=== PATIENT | male | born 1985 | race Caucasian/White ===

== ENCOUNTER 2019-04-08 02:42 | Emergency (ER) | payer BC ==
[~2019-04-08] VITALS: Ht 165.1 cm; Wt 81.0 kg
[2019-04-08 06:55] VITALS: BP 150/110
== END 2019-04-08 06:55 | disposition home or self-care (01) ==
LOC: ED 02:42
DX: S43.004A Unspecified dislocation of right shoulder joint, initial encounter (principal); S01.81XA Laceration without foreign body of other part of head, initial encounter; S01.01XA Laceration without foreign body of scalp, initial encounter; Y04.0XXA Assault by unarmed brawl or fight, initial encounter; Y93.89 Activity, other specified; Y92.098 Other place in other non-institutional residence as the place of occurrence of the external cause; Y99.8 Other external cause status
CPT/HCPCS: J2001; J2405; J3010; Q0092